=== PATIENT | female | born 2000 | race American Indian/Alaskan Native ===

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

== ENCOUNTER → 2022-05-26 | Outpatient (CLI) | payer OTHER ==
[~2022-05-26] MED LIST changes: +AZIT250 PO; +PRED20 PO
== END | disposition home or self-care (01) ==
LOC: LAB SHORT 12:00
DX: Z09 Encounter for follow-up examination after completed treatment for conditions other than malignant neoplasm (principal); Z86.14 Personal history of Methicillin resistant Staphylococcus aureus infection
CPT/HCPCS: 87081

== ENCOUNTER → 2022-06-03 | Outpatient (CLI) | payer OTHER | END | disposition home or self-care (01) | LOC: LAB SHORT 10:30 | DX: Z09 Encounter for follow-up examination after completed treatment for conditions other than malignant neoplasm (principal); Z86.14 Personal history of Methicillin resistant Staphylococcus aureus infection | CPT/HCPCS: 87081 ==

== ENCOUNTER → 2022-09-20 | Outpatient (CLI) | payer OTHER ==
[~2022-09-20] MED LIST changes: +PRENATAL TABLE1 EAC2 PO
[2022-09-21 09:02] LABS: Candida species (DNA Probe) Negative (NEGATIVE); G. vaginalis (DNA Probe) Negative (NEGATIVE); T. vaginalis (DNA Probe) Negative (NEGATIVE)
== END | disposition home or self-care (01) ==
LOC: LAB 15:46 → LAB SHORT 15:46
PROVIDERS: Advanced Practice Midwife
DX: N76.0 Acute vaginitis (principal)
CPT/HCPCS: 87480; 87510; 87660

== ENCOUNTER → 2022-11-29 | Outpatient (CLI) | payer OTHER ==
[2022-11-30 10:37] LABS: Candida species (DNA Probe) Negative (NEGATIVE); G. vaginalis (DNA Probe) Negative (NEGATIVE); T. vaginalis (DNA Probe) Negative (NEGATIVE)
== END | disposition home or self-care (01) ==
LOC: LAB SHORT 17:11 → LAB 17:11
PROVIDERS: Advanced Practice Midwife
DX: N76.0 Acute vaginitis (principal)
CPT/HCPCS: 87480; 87510; 87660

== ENCOUNTER 2023-01-02 18:51 | Inpatient (IN) | payer OTHER ==
[~2023-01-02] VITALS: Ht 175.3 cm; Wt 113.6 kg
[2023-01-02 19:32] VITALS: BP 126/61
[2023-01-02 19:40] LABS: BASOPHILS ABSOLUTE AUTO 0.06 K/mm3 (0.00-0.23); BASOPHILS PERCENT AUTO 0 % (0-2); EOSINOPHILS ABSOLUTE AUTO 0.23 K/mm3 (0.00-0.68); EOSINOPHILS PERCENT AUTO 2 % (0-6); Hematocrit 35.8 % (33.0-51.0); Hemoglobin 12.1 g/dL (11.5-16.0); IMMATURE GRAN ABSOLUTE AUTO 0.08 K/mm3 (0.00-0.10); IMMATURE GRAN PERCENT AUTO 1 % (0-1); LYMPHOCYTES ABSOLUTE AUTO 2.28 K/mm3 (0.84-5.20); LYMPHOCYTES PERCENT AUTO 17 % (21-46); MONOCYTES ABSOLUTE AUTO 0.64 K/mm3 (0.16-1.47); MONOCYTES PERCENT AUTO 5 % (4-13); Mean Corpuscular HGB 26.4 pg (26.0-34.0); Mean Corpuscular HGB Conc 33.8 g/dL (31.5-36.5); Mean Corpuscular Volume 78 fL (80-100); Mean Platelet Volume 10.3 fL (9.1-12.4); NEUTROPHILS ABSOLUTE AUTO 10.11 K/mm3 (1.96-9.15); NEUTROPHILS PERCENT AUTO 76 % (41-73); Platelet Count 300 K/mm3 (150-400); RDW Coefficient Variation 13.6 % (11.7-14.2); Red Blood Cell Count 4.58 M/mm3 (3.80-5.20)
[2023-01-02 20:34] VITALS: BP 116/55
[2023-01-02 20:49] VITALS: BP 105/55
[2023-01-02 21:05] VITALS: BP 111/65
[2023-01-02 21:19] VITALS: BP 112/64
[2023-01-02] MEDS ORDERED: FLUT1DIS5 (22:27)
--- NOTE | 2023-01-02 23:43 | NUR ---
RN NOTIFIED NOC RT OF PTS HX WITH ASTHMA AND IS AWARE OF PT ADMITTED TO [facility].
[2023-01-03] VITALS (63 sets, daily range): BP systolic 91–155; BP diastolic 50–128
--- NOTE | 2023-01-03 00:07 | NUR ---
RN DISCUSSED WITH PT ABOUT IGNITION SOURCES. FOB AND PT VERBALLY AGREE TO LEAVE ALL SMOKING/VAPING RELATED ITEMS OUT IN THE CAR.
--- NOTE | 2023-01-03 07:56 | NUR ---
SPOKE WITH PT AND VISITORS REGARDING IGNITION SOURCES. ALL REMINDED THAT ALL IGNITION SOURCES ARE NOT TO BE IN HOSPITAL.
[2023-01-03 19:35] LABS: PO2 Cord - Arterial 22.1 mmHg (16-20); pH Cord - Arterial 7.34 (7.28-7.35)
[2023-01-03 19:37] LABS: PCO2 Cord - Venous 60.9 mmHg (40-50); PO2 Cord - Venous < 16 mmHg (28-32); pH Umbilical Cord - Venous 7.16 (7.26-7.35)
[2023-01-04 01:24] VITALS: BP 115/68
[2023-01-04 05:58] VITALS: BP 119/58
[2023-01-04 07:24] LABS: BASOPHILS ABSOLUTE AUTO 0.05 K/mm3 (0.00-0.23); BASOPHILS PERCENT AUTO 0 % (0-2); EOSINOPHILS ABSOLUTE AUTO 0.19 K/mm3 (0.00-0.68); EOSINOPHILS PERCENT AUTO 1 % (0-6); Hemoglobin 9.6 g/dL (11.5-16.0); IMMATURE GRAN ABSOLUTE AUTO 0.06 K/mm3 (0.00-0.10); IMMATURE GRAN PERCENT AUTO 0 % (0-1); LYMPHOCYTES ABSOLUTE AUTO 2.03 K/mm3 (0.84-5.20); LYMPHOCYTES PERCENT AUTO 15 % (21-46); MONOCYTES ABSOLUTE AUTO 0.79 K/mm3 (0.16-1.47); MONOCYTES PERCENT AUTO 6 % (4-13); Mean Corpuscular HGB 26.2 pg (26.0-34.0); Mean Corpuscular HGB Conc 33.1 g/dL (31.5-36.5); Mean Corpuscular Volume 79 fL (80-100); Mean Platelet Volume 10.4 fL (9.1-12.4); NEUTROPHILS ABSOLUTE AUTO 10.62 K/mm3 (1.96-9.15); NEUTROPHILS PERCENT AUTO 77 % (41-73); Platelet Count 228 K/mm3 (150-400); RDW Coefficient Variation 13.6 % (11.7-14.2); RDW Standard Deviation 39.8 fL (35.1-46.3); Red Blood Cell Count 3.67 M/mm3 (3.80-5.20); White Blood Cell Count 13.74 K/mm3 (4.00-11.30)
--- NOTE | 2023-01-04 09:06 | NUR ---
01/04/23 0906 Viky Whitfield VERIFICATIONS: EDIT CHART.
[2023-01-04 09:36] VITALS: BP 127/71
--- NOTE | 2023-01-04 11:14 | NUR ---
AGREE WITH ABOVE ASSESSMENT
[2023-01-04 11:59] VITALS: BP 115/66
[2023-01-04 17:03] VITALS: BP 125/61
[2023-01-04 19:56] VITALS: BP 121/56
[2023-01-05] VITALS (8 sets, daily range): BP systolic 115–138; BP diastolic 56–76
[2023-01-06 00:13] VITALS: BP 124/63
[2023-01-06 04:37] VITALS: BP 131/72
--- NOTE | 2023-01-06 04:41 | NUR ---
pt c/o feeling like her incision was "swollen". assessment done by RN and incision found to be minimally swollen but not red or hot to touch. pain managed with painmedication. ice pack applied to incision.
[2023-01-06 07:36] VITALS: BP 109/64
--- NOTE | 2023-01-06 10:10 | NUR ---
0900 CONCERNED ABOUT HER INCISION. INCISION IS BRUISED AND HAS MILD SWELLING SEEN BY DR DUMONT. INCISION WNL. INSTRUCTED TO LOOK AT HER INCISION DAILY AND REPORT S/S OF INFECTION
--- NOTE | 2023-01-06 11:02 | NUR ---
1000 discharge instructions reviewed with and copy give to patient
== END 2023-01-06 10:50 | disposition home or self-care (01) | DRG 787 ==
LOC: OBS 18:51 → BC 18:56
PROVIDERS: ADMIT Obstetrics & Gynecology
PROC: 4A033R1 Measurement of Arterial Saturation, Peripheral, Percutaneous Approach (ICD-10-PCS; 2023-01-03)
PROC: 10D00Z1 Extraction of Products of Conception, Low, Open Approach (ICD-10-PCS; principal; 2023-01-03 18:00)
DX: O99.52 Diseases of the respiratory system complicating childbirth (principal); D62 Acute posthemorrhagic anemia; O76 Abnormality in fetal heart rate and rhythm complicating labor and delivery; Z37.0 Single live birth; J45.909 Unspecified asthma, uncomplicated; O99.334 Smoking (tobacco) complicating childbirth; F17.290 Nicotine dependence, other tobacco product, uncomplicated; O90.81 Anemia of the puerperium; O99.824 Streptococcus B carrier state complicating childbirth; O77.0 Labor and delivery complicated by meconium in amniotic fluid; Z79.51 Long term (current) use of inhaled steroids; Z67.11 Type A blood, Rh negative; Z79.899 Other long term (current) drug therapy; Z79.82 Long term (current) use of aspirin; Z98.890 Other specified postprocedural states; Z3A.39 39 weeks gestation of pregnancy; Z79.52 Long term (current) use of systemic steroids
CPT/HCPCS: 36415; 51702; 82803; 85025; 85460; 86850; 86900; 86901; 86923; 94640; 94664; 96372; A9270; J0290; J0456; J0690; J1885; J2210; J2371; J2405; J2590; J2765; J2916; J3010; J7050; J7120

== ENCOUNTER 2023-05-23 03:21 | Emergency (ER) | payer OTHER ==
[~2023-05-23] VITALS: Ht 175.3 cm; Wt 108.9 kg
[~2023-05-23 03:21] MED LIST changes: +FLUT1DIS5
[2023-05-23 05:30] VITALS: BP 127/72
[2023-05-23] MEDS ORDERED: FLUT1DIS5 INH (05:33)
[2023-05-23] MEDS ORDERED: PRED20 PO (05:35)
== END 2023-05-23 05:39 | disposition home or self-care (01) ==
LOC: ER 03:21
DX: J45.901 Unspecified asthma with (acute) exacerbation (principal); Z79.51 Long term (current) use of inhaled steroids
CPT/HCPCS: 71046; 94640; 94664; 99285-25; A9270; J7512

== ENCOUNTER → 2023-06-07 | Outpatient (CLI) | payer OTHER ==
[~2023-06-07] MED LIST changes: +FLUT1DIS5 INH
[2023-06-08 12:30] LABS: Candida species (DNA Probe) Negative (NEGATIVE); G. vaginalis (DNA Probe) Negative (NEGATIVE); T. vaginalis (DNA Probe) Negative (NEGATIVE)
[2023-06-10 04:28] LABS: APTIMA MEDIA TYPE Unisex Swab; C. TRACHOMATIS BY TMA Negative (Negative); N. GONORRHOEAE BY TMA Negative (Negative); SPECIMEN SOURCE Cervical
== END ==
LOC: LAB 17:35 → LAB SHORT 17:35
PROVIDERS: Obstetrics & Gynecology
DX: Z11.3 Encounter for screening for infections with a predominantly sexual mode of transmission (principal); N89.8 Other specified noninflammatory disorders of vagina
CPT/HCPCS: 87480; 87491; 87510; 87591; 87660

== ENCOUNTER 2023-12-05 19:11 | Emergency (ER) | payer OTHER ==
[~2023-12-05] VITALS: Ht 175.3 cm; Wt 104.3 kg
[2023-12-05 19:30] LABS: BASOPHILS ABSOLUTE AUTO 0.09 K/mm3 (0.00-0.23); BASOPHILS PERCENT AUTO 1 % (0-2); EOSINOPHILS ABSOLUTE AUTO 1.05 K/mm3 (0.00-0.68); EOSINOPHILS PERCENT AUTO 9 % (0-6); Hematocrit 38.1 % (33.0-51.0); IMMATURE GRAN ABSOLUTE AUTO 0.09 K/mm3 (0.00-0.10); IMMATURE GRAN PERCENT AUTO 1 % (0-1); LYMPHOCYTES ABSOLUTE AUTO 2.66 K/mm3 (0.84-5.20); LYMPHOCYTES PERCENT AUTO 22 % (21-46); MONOCYTES ABSOLUTE AUTO 0.96 K/mm3 (0.16-1.47); MONOCYTES PERCENT AUTO 8 % (4-13); Mean Corpuscular HGB 25.2 pg (26.0-34.0); Mean Corpuscular HGB Conc 31.5 g/dL (31.5-36.5); Mean Corpuscular Volume 80 fL (80-100); Mean Platelet Volume 9.7 fL (9.1-12.4); NEUTROPHILS ABSOLUTE AUTO 7.51 K/mm3 (1.96-9.15); NEUTROPHILS PERCENT AUTO 61 % (41-73); Platelet Count 369 K/mm3 (150-400); RDW Coefficient Variation 13.9 % (11.7-14.2); RDW Standard Deviation 40.7 fL (35.1-46.3); Red Blood Cell Count 4.77 M/mm3 (3.80-5.20); White Blood Cell Count 12.36 K/mm3 (4.00-11.30)
[2023-12-05 19:49] LABS: Albumin, Blood 3.4 g/dL (3.4-5.0); Albumin/Globulin Ratio 0.9 (0.8-1.8); Bilirubin, Total 0.4 mg/dL (0.1-1.0); Bun/Creatinine Ratio 16.6 (12.0-20.0); Calcium, Blood 8.8 mg/dL (8.5-10.1); Creatinine, Blood 0.6 mg/dL (0.40-1.00); Globulin, Blood 3.6 g/dL (2.2-4.0); Potassium, Blood 3.9 mmol/L (3.5-5.5)
[2023-12-05 21:06] LABS: Prolactin 99.9 ng/mL
[2023-12-05 21:21] LABS: Source, Urine Clean Catch
[2023-12-05 21:24] LABS: Appearance, Urine Clear (Clear); Bilirubin, Urine Neg (Neg); Blood, Urine 1+ (Neg); Color, Urine Yellow (P-Yellow); Glucose Qualitative, Urine Neg (Neg); Ketones, Urine 1+ (Neg); Leukocyte Esterase, Urine Neg (Neg); Nitrite, Urine Neg (Neg); Protein, Urine 3+ (Neg); Specific Gravity, Urine 1.025 (1.003-1.022); Urobilinogen, Urine NORM (Normal)
[2023-12-05 21:33] LABS: Bacteria Few /hpf; Hyaline Casts 0-2 /lpf (0-2); Squamous Epithelial Cells Few /hpf (Few)
[2023-12-05 21:34] LABS: Amorphous Light (0-Heavy)
[2023-12-05 21:57] LABS: U Amphetamine Screen Not Detected; U Barbituate Screen Not Detected; U Benzodiazapine Screen Not Detected; U Buprenorphine Screen Not Detected; U Cannabinoids Screen Not Detected; U Cocaine Screen Not Detected; U Methadone Screen Not Detected; U Methamphetamine Screen Not Detected; U Opiates Screen Not Detected; U Oxycodone Screen Not Detected; U Phencyclidine Screen Not Detected
[2023-12-05] MEDS ORDERED: Ipratropium/Albuterol SulF 2.5-0.5MG/3 ML Amp INH ONE (22:30)
[2023-12-05] MEDS ORDERED: Dexamethasone Sod Phos 10 MG/ML 1ML VIAL IV ONE (22:35)
[2023-12-05] MEDS ORDERED: ALBU90OI INH (22:59)
[2023-12-05] MEDS ORDERED: FLUTICASONE-SA1 EAC1 INH (22:59)
[2023-12-05 23:30] VITALS: BP 106/66
[2023-12-07] MEDS ORDERED: DIAZ2 PO (06:33)
[2023-12-07] MEDS ORDERED: LEVE500 PO (06:33)
== END 2023-12-05 23:30 | disposition home or self-care (01) ==
LOC: ER 19:11
PROVIDERS: Emergency Medicine; Student in an Organized Health Care Education/Training Program
DX: R56.9 Unspecified convulsions (principal); J45.901 Unspecified asthma with (acute) exacerbation
CPT/HCPCS: 70450; 80053; 81001; 84146; 84703; 85025; 87086; 93005; 93010; 94640; 94664; 96374; 99285-25; J1100

== ENCOUNTER 2024-03-16 09:05 | Inpatient (IN) | payer OTHER ==
[~2024-03-16] VITALS: Ht 175.3 cm; Wt 104.2 kg
[~2024-03-16 09:05] MED LIST changes: +DIAZ2 PO; +FLUTICASONE-SA1 EAC1 INH; +LEVE500 PO
[2024-03-16] MEDS ORDERED: Albuterol 2.5 MG/3 ML VIAL INH SCH ×3 (09:25→13:35)
[2024-03-16] MEDS ORDERED: Ipratropium Bromide INH 0.02% 0.5 mg/2.5ML Vial INH SCH (09:25)
[2024-03-16] MEDS ORDERED: MethylPREDNISolone Sod Succ 125 MG Vial IV ONE (09:40)
[2024-03-16 10:09] LABS: BASOPHILS ABSOLUTE AUTO 0.08 K/mm3 (0.00-0.23); BASOPHILS PERCENT AUTO 1 % (0-2); EOSINOPHILS ABSOLUTE AUTO 0.89 K/mm3 (0.00-0.68); EOSINOPHILS PERCENT AUTO 7 % (0-6); Hematocrit 37.4 % (33.0-51.0); Hemoglobin 12.2 g/dL (11.5-16.0); IMMATURE GRAN ABSOLUTE AUTO 0.05 K/mm3 (0.00-0.10); IMMATURE GRAN PERCENT AUTO 0 % (0-1); LYMPHOCYTES ABSOLUTE AUTO 1.24 K/mm3 (0.84-5.20); LYMPHOCYTES PERCENT AUTO 9 % (21-46); MONOCYTES ABSOLUTE AUTO 0.78 K/mm3 (0.16-1.47); MONOCYTES PERCENT AUTO 6 % (4-13); Mean Corpuscular HGB 25.2 pg (26.0-34.0); Mean Corpuscular HGB Conc 32.6 g/dL (31.5-36.5); Mean Corpuscular Volume 77 fL (80-100); Mean Platelet Volume 9.1 fL (9.1-12.4); NEUTROPHILS ABSOLUTE AUTO 10.42 K/mm3 (1.96-9.15); NEUTROPHILS PERCENT AUTO 77 % (41-73); Platelet Count 282 K/mm3 (150-400); RDW Coefficient Variation 13.9 % (11.7-14.2); Red Blood Cell Count 4.84 M/mm3 (3.80-5.20); White Blood Cell Count 13.46 K/mm3 (4.00-11.30)
[2024-03-16 10:29] LABS: Albumin, Blood 3.8 g/dL (3.4-5.0); Bilirubin, Total 0.3 mg/dL (0.1-1.0); Bun/Creatinine Ratio 13.5 (12.0-20.0); Calcium, Blood 8.9 mg/dL (8.5-10.1); Creatinine, Blood 0.59 mg/dL (0.40-1.00); Globulin, Blood 3.7 g/dL (2.2-4.0); Potassium, Blood 3.3 mmol/L (3.5-5.5); Total Protein, Blood 7.5 g/dL (6.4-8.2)
[2024-03-16] MEDS ORDERED: Magnesium Sulf 2 GM/Water 50ML 50 ML IV ONE (11:40)
[2024-03-16] MEDS ORDERED: NS 1,000 ML IV SCH ×2 (12:35→15:05)
[2024-03-16 12:57] LABS: Influenza A, PCR NEGATIVE (NEGATIVE); Influenza B, PCR NEGATIVE (NEGATIVE); Resp Syncytial Virus, PCR NEGATIVE (NEGATIVE); SARS-Cov-2 (COVID-19) PCR, MMC NEGATIVE (NEGATIVE)
[2024-03-16] MEDS ORDERED: Albuterol 2.5 MG/3 ML VIAL INH PRN (14:55)
[2024-03-16] MEDS ORDERED: Acetaminophen 325 MG TABLET PO PRN (15:00)
[2024-03-16] MEDS ORDERED: Budesonide 1 MG/2 ML RESP INH SCH (15:00)
[2024-03-16] MEDS ORDERED: LORazepam 2 MG/ML 1ML Injection IV PRN (15:00)
[2024-03-16] MEDS ORDERED: FLU VACC TS2024-25(6MOS UP)/PF 45 MCG/0.5 ML SYRINGE IM SCH (15:05)
[2024-03-16] MEDS ORDERED: Prochlorperazine Edisylate 10 mg Vial IV PRN (15:05)
[2024-03-16] MEDS ORDERED: Temazepam 15 MG Cap PO PRN (15:05)
[2024-03-16 15:40] LABS: Base Excess Venous -11.6 mmol/L; Bicarbonate Venous 16.8 mmol/L (24.0-30.0); pH Blood Venous 7.37 (7.34-7.37)
[2024-03-16] MEDS ORDERED: Potassium Chloride 20 MEQ TabCR PO SCH (17:00)
[2024-03-16 17:32] VITALS: BP 126/70
[2024-03-16] MEDS ORDERED: MethylPREDNISolone Sod Succ 125 MG Vial IV SCH (18:00)
[2024-03-16] MEDS ORDERED: Ipratropium/Albuterol SulF 2.5-0.5MG/3 ML Amp INH SCH (18:25)
--- NOTE | 2024-03-16 18:55 | NUR ---
PT SETTLED TO ROOM FROM ER ADMIT. MOTHER IN ROOM AT BEDSIDE. PT A/O X3 PLEASANT COOP SOME ANXIETY. H/R REG, TACHY, NO MURMUR NOTED. PER TELE, AFLUTTER 130'S. HAS RECEIVED STEROIDS AND BREATHING TREATMENTS. ON R.A. RESP EASY, UNLABORED. MODERATELY SHAKEY. LUNGS EXPIRATORY WHEEZES T/OUT. PT ADMITS TO EVENING PRN O2 HOME USE. O2 AT 94% NOW. BT X4 LAST BM YEST PER PT. VOIDS INDEPENDANTLY TO BATHROOM. ADMITS TO BEING ON PERIOD AT THIS TIME. FEMININE PRODUCTS AT BEDSIDE. BED IN LOW POSITION, CALL LITE IN REACH CALLS APPROP
[2024-03-16 20:17] VITALS: BP 124/68
--- NOTE | 2024-03-16 22:13 | NUR ---
UPDATE PATIENT CALLED THIS RN AND STATED SHE WAS HAVING TROUBLE BREATHING. PATIENT SATTING 88-90 ON MONITOR. WHEN THIS RN IN ROOM, PATIENT ALREADY PLACED CANNULA INTO NOSE. CANNULA WAS AT BEDSIDE FOR PRN USE. PATIENT TACHYPNEIC, TACHYCARDIC AND SHAKEY. PATIENT STATED SHE MOVED IN BED TO ATTEMPT TO AMBULATE INTO BATHROOM BUT BECAME SHORT OF BREATH. RT CALLED, INITIATED BREATHING TREATMENT. PRN ATIVAN GIVEN TO PATIENT TO ASSIST WITH RELAXATION. BEDSIDE COMMODE PROVIDED TO PATIENT TO PRESERVE RESPIRATORY STATUS. RESIDENT CALLED WITH UPDATE. RESIDENT TO COME TO BEDSIDE TO EVALUATE.
[2024-03-16] MEDS ORDERED: Lactated Ringer's 1,000 ML IV ONE (22:40)
[2024-03-16 23:00] LABS: Base Excess Venous -8.3 mmol/L; Bicarbonate Venous 18.9 mmol/L (24.0-30.0); PCO2 Venous 26.5 mmHg (38-42)
[2024-03-16 23:05] VITALS: BP 125/62
[2024-03-17] MEDS ORDERED: DEXTROMETHORPHAN/BENZOCAINE 1 EACH LOZENGE MT PRN (00:05)
--- NOTE | 2024-03-17 01:35 | NUR ---
UPDATE PATIENT CALLED THIS RN AND STATED THAT SHE FELT LIKE SHE COULD NOT BREATHE. LUNG SOUNDS WHEEZY T/O AND PATIENT HAS INCREASED WORK OF BREATHING. PATIENT TITRATED TO 5L NC WITH SPO2 90-92%. RT CALLED, TREATMENT INITIATED. RT RECOMMENDED PATIENT BE STARTED ON AIRVO. CALL PLACED TO RESIDENT WITH UPDATE AND SUGGESTION. RESIDENT OK FOR AIRVO TO BE INITIATED.
[2024-03-17] MEDS ORDERED: Azithromycin 500 MG in NS 250 ML IV SCH (03:00)
[2024-03-17 03:47] LABS: Base Excess Venous -6.2 mmol/L; Bicarbonate Venous 20.2 mmol/L (24.0-30.0); PCO2 Venous 30.3 mmHg (38-42)
[2024-03-17 04:12] VITALS: BP 133/71
[2024-03-17 04:19] LABS: BASOPHILS ABSOLUTE AUTO 0.02 K/mm3 (0.00-0.23); BASOPHILS PERCENT AUTO 0 % (0-2); EOSINOPHILS PERCENT AUTO 0 % (0-6); Hematocrit 35.8 % (33.0-51.0); Hemoglobin 11.7 g/dL (11.5-16.0); IMMATURE GRAN ABSOLUTE AUTO 0.18 K/mm3 (0.00-0.10); IMMATURE GRAN PERCENT AUTO 1 % (0-1); LYMPHOCYTES ABSOLUTE AUTO 0.68 K/mm3 (0.84-5.20); LYMPHOCYTES PERCENT AUTO 4 % (21-46); MONOCYTES ABSOLUTE AUTO 0.25 K/mm3 (0.16-1.47); MONOCYTES PERCENT AUTO 1 % (4-13); Mean Corpuscular HGB 25.4 pg (26.0-34.0); Mean Corpuscular HGB Conc 32.7 g/dL (31.5-36.5); Mean Corpuscular Volume 78 fL (80-100); Mean Platelet Volume 9.7 fL (9.1-12.4); NEUTROPHILS ABSOLUTE AUTO 17.01 K/mm3 (1.96-9.15); NEUTROPHILS PERCENT AUTO 94 % (41-73); Platelet Count 340 K/mm3 (150-400); RDW Coefficient Variation 14.3 % (11.7-14.2); RDW Standard Deviation 39.8 fL (35.1-46.3); Red Blood Cell Count 4.61 M/mm3 (3.80-5.20); White Blood Cell Count 18.14 K/mm3 (4.00-11.30)
[2024-03-17 04:50] LABS: Calcium, Blood 9.1 mg/dL (8.5-10.1); Creatinine, Blood 0.57 mg/dL (0.40-1.00); Potassium, Blood 3.8 mmol/L (3.5-5.5)
--- NOTE | 2024-03-17 06:29 | NUR ---
SHIFT SUMMARY PATIENT ALERT, ORIENTED x4. ABLE TO MAKE NEEDS KNOWN TO STAFF. MEDICATED PER EMAR FOR ANXIETY. BP STABLE. PATIENT WITH INCREASED OXYGEN DEMAND THROUGHOUT THE NIGHT. CURRENTLY ON AIRVO 40L, 40% FIO2, WITH O2 SAT MID 90s. ON PRODUCT SUPPORT SPECIALIST, PATIENT ST 120-140 FOR MAJORITY OF NIGHT BUT IS NOW 90-110s. SEE PREVIOUS NOTES REGARDING RESPIRATORY STATUS. PATIENT PIVOTING TO BEDSIDE COMMODE INDEPENDENTLY, ADEQUATE OUTPUT. CURRENTLY ON MENSTRUAL CYCLE, PATIENT MANAGING INDEPENDENTLY. NO OTHER CHANGES SINCE PREVIOUS NOTES. WILL REPORT TO DAY SHIFT RN.
[2024-03-17 07:58] VITALS: BP 128/76
[2024-03-17] MEDS ORDERED: Enoxaparin 40 MG/0.4 ML SYR SC SCH (09:00)
[2024-03-17 10:46] LABS: Bicarbonate Venous 19.5 mmol/L (24.0-30.0); PCO2 Venous 31.2 mmHg (38-42); pH Blood Venous 7.37 (7.34-7.37)
[2024-03-17 11:05] LABS: Bun/Creatinine Ratio 18.9 (12.0-20.0); Calcium, Blood 9.4 mg/dL (8.5-10.1); Creatinine, Blood 0.53 mg/dL (0.40-1.00); Potassium, Blood 3.7 mmol/L (3.5-5.5)
[2024-03-17 13:20] VITALS: BP 134/84
[2024-03-17 16:26] VITALS: BP 112/57
--- NOTE | 2024-03-17 17:35 | NUR ---
SHIFT SUMMARY: NEURO: PT ALERT AND ORIENTED. FOLLOWS COMMANDS AND HAS NOT HAD ANY NEURO SYMPTOMS DURING SHIFT. PT DID BECOME ANXIOUS THIS AFTERNOON DUE TO STRESSORS AT HOME AND WAS MEDICATED WITH 1MG ATIVAN. PT REPORTS RELIEF IN ANXIETY. CARDIAC: PT REMAINS ON TELE AND HAS BEEN SR/ST RATE 80'S-130'S THROUGHOUT SHIFT. DENIES ANY CP. RESP: PTS LUNG SOUNDS HAVE MADE INPROVEMENT THROUGHOUT SHIFT. PT BEGAN ON 45 AIRVO. PT HAS BEEN TITRATED DOWN TO 4L NC THROUGHOUT SHIFT AND CONTINUES TO MAINTAIN O2 SATS ABOUT 95%. DR DUGAN WOULD LIKE HER ABOVE 90%. PT HAS DENIED ANY SOB DURING SHIFT AND HAS RECIEVEN MULTIPLE BREATHING TX. COUGHING UP THICK GREEN SPUTUM. GI/: PT HAS BEEN USING BSC TODAY WITH NO COMPLAINTS. GOOD PO INTAKE. IVF WERE STOPPED. CLEAR YELLOW URINE. SKIN: WNL NO OTHER SIGNIFICANT CHANGES HAPPENED DURING SHIFT. MOTHER HAS BEEN AT BEDSIDE FOR A MAJORITY OF THE DAY. PT HAS BEEN EMOTIONAL OFF AND ON TODAY AND BECOMES TACHY. PT ENCOURAGED TO DEEP BREATHE TO AVOID RESP DISTRESS.
[2024-03-17 20:12] VITALS: BP 135/86
[2024-03-17 23:25] VITALS: BP 130/77
[2024-03-18 03:55] VITALS: BP 120/71
[2024-03-18 04:14] LABS: Base Excess Venous -4.7 mmol/L; Bicarbonate Venous 21.3 mmol/L (24.0-30.0); PCO2 Venous 30.6 mmHg (38-42); pH Blood Venous 7.42 (7.34-7.37)
[2024-03-18 04:45] LABS: Bun/Creatinine Ratio 27.7 (12.0-20.0); Calcium, Blood 8.9 mg/dL (8.5-10.1); Creatinine, Blood 0.51 mg/dL (0.40-1.00); Potassium, Blood 3.7 mmol/L (3.5-5.5)
[2024-03-18] MEDS ORDERED: Guaifenesin/Dextromethorphan Syrup 5 ML UDC PO ONE (04:45)
--- NOTE | 2024-03-18 05:03 | NUR ---
SHIFT SUMMARY- Patient Sinus tach at the beginning of the shift HR in the 120-140 range, SHob due to asthma trigger- visitors smelling of cigarette smoke. Visitors left, PRN ativan + PRN nebs administered. Patient began to feel better, WOB improved on 4LNC. Patient took a shower which also helped calm her down. HR as low as the 90s overnight. Patient with productive cough, requesting expectorant due to difficulty clearing secretions. one time dose for mucinex syrup ordered by resident. Patient feeling relief already. Patient continuing to receive solumedrol and IV zithromax for empiric acute asthma exacerbation treatment. A&Ox4, getting OOB independently. Feeling better this morning. O2 sats maintained on 4LNC overnight. No increased oxygen supplementation needed.
[2024-03-18 07:58] VITALS: BP 134/79
[2024-03-18] MEDS ORDERED: HyDROXyzine HCl 25 MG Tab PO PRN (08:45)
[2024-03-18 09:09] LABS: Free Thyroxine 1.08 ng/dL (0.70-1.60); Triiodothyronine, Free 1.54 pg/mL (2.18-3.98)
[2024-03-18 12:12] VITALS: BP 143/90
--- NOTE | 2024-03-18 16:00 | NUR ---
AMBULATORY TRIAL THIS RN TOOK PT FOR A WALK WITH PULSE OXIMETRY. PT WAS ABOUT TO WALK THE PCU LOOK AND THEN THE SECOND FLOOR WITH NO COMPLAINTS OF SOB OR CP. PT MAINTAINED O2 SATS ABOVE 93%. PT STATED THAT SHE FELT LIKE SHE COULD BREATHE EASIER AFTER GETTING UP AND WALKING.
[2024-03-18 16:42] VITALS: BP 145/99
--- NOTE | 2024-03-18 18:41 | NUR ---
SHIFT SUMMARY: NEURO: ALERT AND ORIENTED X4. PT HAS BEEN ANXIOUS OFF AND ON TODAY AND MEDICATED PER EMAR ORDERS. NO NEURO SYMPTOMS. CARDIAC: PTS HE HAS BEEN ANYWHERE FROM THE 90'S TO THE 130'S THROUGHOUT THE DAY. DENIES ANY CP OR SOB. RESP: PT STARTED SHIFT ON 4L NC, WAS TITRAIED DOWN AND IS NOW ON RA. DENIES ANY SOB. MAINTAINING O2 SATS ABOVE 91%. PT HAS BEEN USING THE FLUTTER VALVE TODAY AND HAS BEEN COUGHING UP A MODERATE AMOUNT OF THICK GREEN SPUTUM. REPORTS THAT SHE FEELS MORE CLEAR SINCE. GI/: PT HAS BEEN AMBULATING TO THE BATHROOM INDEPENDENTLY THROUGHOUT SHIFT WITH NO COMPLAINTS. PLAN FOR POSSIBLE DC TOMORROW IF PT CAN REMAIN ON RA AND RESPIRATORY STATUS CONTINUES TO IMPROVE OVERNIGHT PER DR PACHECO.
[2024-03-18 19:47] VITALS: BP 145/80
[2024-03-19 04:07] VITALS: BP 138/85
[2024-03-19] MEDS ORDERED: Liothyronine Sodium 5 MCG Tab PO SCH (06:00)
--- NOTE | 2024-03-19 06:08 | NUR ---
END OF SHIFT SUMMARY- Uneventful night, patient only needed oxygen for a short period of time at the beginning of the shift due to the room being warm which caused her a little anxiety. PRN atarax effective. Still receiving solumedrol and zithromax for Asthma exacerbation. Patient says she wears oxygen at home PRN also. Denies pain,VSS, independent in the room. Plan is to possibly discharge today.
[2024-03-19 07:39] VITALS: BP 137/99
[2024-03-19] MEDS ORDERED: PredniSONE 20 MG Tab PO SCH (09:00)
[2024-03-19] MEDS ORDERED: ALBU90OI INH (11:22)
[2024-03-19] MEDS ORDERED: FLUTICASONE-SA1 EAC1 INH (11:23)
[2024-03-19] MEDS ORDERED: ALBU2.5V5 INH (11:23)
[2024-03-19] MEDS ORDERED: LIOT5 PO (11:24)
[2024-03-19] MEDS ORDERED: PRED20 PO (11:26)
[2024-03-19] MEDS ORDERED: DIAZ2 PO (11:27)
--- NOTE | 2024-03-19 11:55 | NUR ---
DISCHARGE NOTE: PT AND FAMILY EDUCATED ABOUT MEDICATIONS AND FOLLOW UP APPOINTMENTS. PT STATED UNDERSTANDING. IVS REMOVED AND TELE RETURNED TO TELE ROOM. ALL QUESTIONS ANSWERED AND NO NEEDS AT TIME OF DISCHARGE.
== END 2024-03-19 11:57 | disposition home or self-care (01) | DRG 189 ==
LOC: ER 09:05 → PCU 14:58
PROVIDERS: Family Medicine; Internal Medicine; Physician Assistant; ADMIT Internal Medicine
DX: J96.01 Acute respiratory failure with hypoxia (principal); J45.901 Unspecified asthma with (acute) exacerbation; E87.4 Mixed disorder of acid-base balance; D72.10 Eosinophilia, unspecified; E03.9 Hypothyroidism, unspecified; Z79.51 Long term (current) use of inhaled steroids
CPT/HCPCS: 0241U; 36415; 71046; 80048; 80053; 82803; 84439; 84443; 84481; 84703; 85025; 87070; 87205; 93005; 93010; 94640; 94644; 94645; 94664; 94760; 94762; 96361; 96365; 96375; 99285-25; A9270; J0456; J1650; J2060; J2919; J3475; J7030; J7050; J7120; J7512; J7626